=== PATIENT | male | born 1985 | race Caucasian/White ===

== ENCOUNTER 2019-07-23 01:10 | Emergency (ER) | payer OTHER, SELFPAY ==
[2019-07-23 01:11] VITALS: BP 143/79; PULSE 73; RESP 18; TEMP 36.1; O2SAT 100; BMI 22.4
--- NOTE | 2019-07-23 01:26 | ED.DCSUM_ITS ---
- ER Visit Summary Date of Service: 07/23/19 Chief Complaint: Ear pain History of Present Illness: The patient is a 34 M with right ear pain that started fairly suddenly around 10:30 PM tonight. Nothing seemed to bring it on. Nothing makes it worse. He tried using Tylenol and peroxide, but nothing helped. He never had this before. Denies hearing changes. He feels like there is fluid or pressure behind the ear. No recent travel. No trauma. No drainage. No instrumentation. No swimming. Physical Examination: Afebrile and vital signs unremarkable. Right TM is injected and erythematous with effusion. Canal is unremarkable. Tragus normal. No lymphadenopathy. Skin appears normal without lesions. HEENT exam otherwise normal. Cranial nerves normal. Heart regular. No respiratory distress. Test Results: None indicated Emergency Department Course and Treatment: Patient presents with otalgia. He has inflammation of his right TM. Canal is normal. We will treat with Kenalog and Toradol. 1 dose of Toradol should not increase risk of bleeding. He will continue Tylenol at home. He will be given a prescription for Augmentin should he have worsening symptoms, fever, drainage, congestion, or other infectious symptoms. If he does have issues, he should follow-up with his PCP right away. Otherwise he can follow-up in the next week or 2 for recheck. Treatment Plan: As above Disposition: Discharge Impression: 1. Right otalgia This note was generated with [employer] dictation software. It may contain incorrect words, spelling, and punctuation that were not noted in review of the chart prior to signing ED Disposition - Plan for ED Patient: Referrals: Rhett Brooks DO [Primary Care Provider] -
--- NOTE | 2019-07-23 01:28 | ED.DEP ---
ED Disposition - Plan for ED Patient: Instructions: OTITIS MEDIA, Abx Tx (Adult) Prescriptions: Amox/Clavulanate Tablet [Augmentin Tablet] 875 mg PO Q12H #20 tab Prescription Printed Referrals: Rhett Brooks DO [Primary Care Provider] -
[2019-07-23] MEDS: Triamcinolone Acetonide 40 MG/ML Vial IM (01:42)
[2019-07-23] MEDS: Ketorolac 30 MG/ML Syringe IM (01:42)
[2019-07-23 01:48] VITALS: BP 141/79; PULSE 65; RESP 18; O2SAT 100
--- NOTE | 2019-07-23 02:21 | ED.RN ---
PT left discharge paperwork including rx in room. 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
== END 2019-07-23 02:08 | disposition home or self-care (01) ==
LOC: ED 01:36
PROVIDERS: Emergency Provider Emergency Medicine; PCP Family Medicine
DX: H92.01 Otalgia, right ear (principal)
CPT/HCPCS: 96372; 99282

== ENCOUNTER 2021-02-16 16:11 | Emergency (ER) | payer OTHER, SELFPAY ==
[2021-02-16 16:12] VITALS: BP 143/96; PULSE 74; RESP 25; TEMP 36.4; O2SAT 99; BMI 22.1
[2021-02-16] MEDS: Famotidine 200 MG/20 ML MDV 40 MG in 0.9% Normal Saline (Pres. free 6 ML 300 MG IV (17:22)
--- NOTE | 2021-02-16 18:12 | EDS_ITS ---
HPI History of Present Illness Chief Complaint: Allergic Reaction Narrative Narrative: Patient states he was outside working in the yard today when he excellently disturbed a hornets nest. He reports he was stung multiple times. Shortly after this he developed redness swelling and a rash and feeling of shortness of breath. EMS was called and gave the patient IM epinephrine as well as IV Solu-Medrol and Benadryl. Patient denies any previous allergy to insects and states he is feeling better after the medications provided by EMS but based on his symptoms was brought in for evaluation [facility] Medical History Back pain Diarrhea Difficulty balancing Fatigue Limb weakness Shoulder pain [facility] for severe earache Home Medications venlafaxine 75 mg PO DAILY 07/23/19 [History Last Taken Unknown] epinephrine 0.3 mg IM .once PRN #2 ea 02/16/21 [Rx Last Taken Unknown] prednisone 40 mg PO DAILY 5 Days #10 tab 02/16/21 [Rx Last Taken Unknown] Allergy/AdvReac Type Severity Reaction Status Date / Time bee venom protein (honey bee) Allergy Shortness Verified 02/16/21 16:11 of breath Social History (Updated 07/25/19 @ 12:50 by Nicole Bhandari DESIGN DRAFTER, DESIGN DRAFTER-C) Smoking Status: Never smoker alcohol intake: never ROS ROS ED Constitutional Constitutional ED: Denies chills or fever(s) Eyes Eyes: Denies change in vision Cardiovascular Cardiovascular: Denies chest pain Respiratory/Chest Respiratory/Chest: Reports dyspnea; Denies cough Gastrointestinal Gastrointestinal: Denies nausea or vomiting Musculoskeletal Musculoskeletal: Denies myalgias Integumentary Reports rash Neurologic Neurologic: Denies headache(s) Allergic/Immunologic Allergic/Immunologic ED: Reports urticaria; Denies mouth swelling or tongue swelling EXAM Physical Exam Const Vital Signs: 02/16/21 16:12 Temperature 97.5 F L Temperature Source Temporal Pulse Rate 74 Respiratory Rate 25 H Blood Pressure 143/96 H Blood Pressure Mean 111 Pulse Ox 99 Oxygen Delivery Method Room Air Positive well nourished and well developed General Appearance ED: well developed HEENT HEENT Narrative: No tongue or lip swelling no oral lesions no airway edema or compromise Eyes PERRL and EOMs intact bilaterally Neck supple Neck Narrative: No crepitance noted Chest Wall inspection of chest normal Resp normal respiratory effort and clear to auscultation bilaterally Cardio regular rate and regular rhythm GI non-tender and non-distended Auscultation: normoactive bowel sounds Palpation: soft Extremity Extremity Narrative: Patient has multiple areas of urticaria to the lower extremities consistent with hornet sting but no retained stinger present. He has blanchable erythema of both legs through the abdomen chest and anterior neck consistent with acute allergic reaction but no obvious infectious changes Neuro oriented x3 and CN's II-XII intact bilaterally Sensorium / Orientation: alert Psych mental status grossly normal Skin Skin Narrative: Soft tissue changes to the body consistent with acute allergic reaction as documented above MDM MDM MDM Narrative Medical decision making narrative: Patient presented to the ER without any obvious respiratory distress or angioedema so there is no need for airway management. He was already given epinephrine per EMS as well as Solu-Medrol and Benadryl. Therefore added Pepcid upon arrival. Patient was watched in the ER for multiple hours and had resolution of his symptoms with no rebound and therefore safe for discharge Discharge Plan Triage Chief Complaint: Allergic Reaction ED Provider: Junior Mccormack Dx/Rx/DC Orders Clinical Impression: Acute allergic reaction Prescriptions: New prednisone 20 mg tablet 40 mg PO DAILY 5 Days Qty: 10 RF: 0 epinephrine 0.3 mg/0.3 mL auto-injector 0.3 mg IM .once PRN (Reason: anaphylaxis) Qty: 2 RF: 0 No Action venlafaxine 75 MG capsule,extended release 24hr 75 mg PO DAILY RF: 0 Primary Care Provider: Rhett Brooks Referrals: Rhett Brooks DO [Primary Care Provider] - Disposition Disposition: Home, Self Care
[2021-02-16 18:51] VITALS: BP 122/74; BP 128/74; PULSE 87; PULSE 90; RESP 14; RESP 16; O2SAT 98
== END 2021-02-16 18:53 | disposition home or self-care (01) ==
PROVIDERS: Emergency Provider Emergency Medicine; PCP Family Medicine
DX: T78.40XA Allergy, unspecified, initial encounter (principal); Z79.52 Long term (current) use of systemic steroids
CPT/HCPCS: 96374; 99285; A4216; J3490

== ENCOUNTER → 2022-01-09 | Outpatient (CLI) | payer OTHER, SELFPAY ==
--- NOTE | 2022-01-09 08:45 | VAS_PTH ---
PATIENT: ZOE PETERSEN LOC: [facility] U#:[id number] AGE/SX: 36/M ROOM: RE01/09/[address]: Dr. Shayne Sutton MD : [id number] BED: DIS: 01/09/2022 SPEC #: [id number] RECD: 01/09/22 10:39 STATUS: [facility] [place] #: [id number] HODAN: 01/09/22 08:[address]: Shayne Sutton DEPT: SURGICAL PATHOLOGY RECD BY: Bandar Dolan ENTERED: 01/09/22 11:10 SP TYPE: VAS OTHR DR: Dr. Rhett Brooks, DO Tissues: A - Vas deferens, NOS B - Vas deferens, NOS Procedures: Surgery Specimen Level II HEADER OPERATION: Bilateral partial vasectomy PRE-OP DIAGNOSIS: Sterilization TISSUE SUBMITTED: A ? Right vas deferens, B ? Left vas deferens MICROSCOPIC DIAGNOSIS A. Right vas deferens, partial vasectomy: Completely transected segment of vas deferens, no pathologic diagnosis. B. Left vas deferens, partial vasectomy: Completely transected segment of vas deferens, no pathologic diagnosis. COLLEEN:kelli 01/10/2022 MICROSCOPIC DESCRIPTION Slides are reviewed. GROSS DESCRIPTION A - Received is one container designated right vas deferens. The specimen consists of a tubular segment of mccoy soft tissue measuring 0.6 cm in length and 0.2 cm in diameter. The specimen is sectioned and submitted entirely in one cassette. B - Received is one container designated left vas deferens. The specimen consists of a tubular segment of mccoy soft tissue measuring 0.5 cm in length and 0.2 cm in diameter. The specimen is sectioned and submitted entirely in one cassette. / COLLEEN:kelli 01/09/2022 TC:4 CPT: 13983 x2
== END | disposition home or self-care (01) ==
LOC: LABSPEC 10:48
PROVIDERS: PCP Family Medicine; Referring Provider Surgery; Visit Provider Surgery
DX: Z30.2 Encounter for sterilization (principal)
CPT/HCPCS: 88302

== ENCOUNTER → 2025-03-03 | Outpatient (CLI) | payer OTHER, SELFPAY | END | disposition home or self-care (01) | LOC: PSN 09:15 | PROVIDERS: PCP Family Medicine; Referring Provider Internal Medicine Critical Care Medicine; Visit Provider Internal Medicine Critical Care Medicine | DX: R93.89 Abnormal findings on diagnostic imaging of other specified body structures (principal) | CPT/HCPCS: 94060; 94726; 94729 ==